=== PATIENT | female | born 1945 | race Caucasian/White ===

== ENCOUNTER 2018-07-26 19:22 | Emergency (ER) | payer MEDICARE ==
--- NOTE | 2018-07-26 20:15 | ED Physician Documentation ---
History of Present Illness - Stated complaint Stated Complaint: LT LEG PAIN - Chief complaint Chief Complaint: Trauma Ext - History obtained from History obtained from: Patient - History of Present Illness Timing: How many days ago (4) Pain level now: 5 Improved by: rest Worsened by: movement - Additonal information Additional information: c/o atraumatic LLE pain, mild swelling x 4 days, predominantly in ankle, calf, and hip. She is concerned because she has h/o DVT in LLE approximately 3 years ago. Review of Systems Constitutional: denies: Fever Musculoskeletal: reports: Extremity pain, Extremity swelling Neurologic: denies: Focal weakness, Numbness PD PAST MEDICAL HISTORY - Past Medical History Past Medical History: Yes Cardiovascular: Hypertension, High cholesterol - Past Surgical History Past Surgical History: Yes Ortho: Hip replacement - Present Medications Home Medications: Ambulatory Orders Medication Instructions Recorded Confirmed Oxycodone HCl/Acetaminophen 1 - 2 each PO Q6H PRN #20 tablet 07/26/18 [Percocet 5-325 mg Tablet] Rivaroxaban [Xarelto] 15 mg PO BID #41 tablet 07/26/18 Rivaroxaban [Xarelto] 20 mg PO DAILY #14 tablet 07/26/18 - Allergies Allergies/Adverse Reactions: Allergies Allergy/AdvReac Type Severity Reaction Status Date / Time No Known Drug Allergies Allergy Verified 07/26/18 19:29 - Social History Does the pt smoke?: No Smoking Status: Former smoker Does the pt drink ETOH?: No Does the pt have substance abuse?: No - Immunizations Immunizations are current?: Yes PD ED PE NORMAL - Vitals Vital signs reviewed: Yes - General General: Alert and oriented X 3, No acute distress, Well developed/nourished - Derm Derm: Normal color, Warm and dry, No rash - Extremities Extremities: No tenderness to palpate, Normal ROM s pain, No edema Results - Vitals Vitals: Vital Signs - 24 hr 07/26/18 07/26/18 07/26/18 19:27 19:28 21:58 Temperature 37.0 C 37.0 C 36.8 C Heart Rate 92 92 71 Respiratory 17 17 14 Rate Blood Pressure 154/86 H 154/86 H 148/80 H O2 Saturation 96 96 96 07/26/18 23:31 Temperature 36.7 C Heart Rate 85 Respiratory 14 Rate Blood Pressure 147/98 H O2 Saturation 94 Oxygen O2 Source Room air - Rads (name of study) LLE US Radiology: Prelim report reviewed, See rad report PD MEDICAL DECISION MAKING - ED course Complexity details: reviewed results, re-evaluated patient, considered differential, d/w patient ED course: Discussed results of US and treatment options with patient. US reveals small calf DVT; reviewing the literature, there is higher risk of proximal extension because of both h/o DVT as well as this clot being "unprovoked" (no inciting/precipitating event). I recommended initiating anticoagulation and patient agrees with this plan. Risks and benefits discussed as well as alternatives (risks including bleeding, cost, side effects; benefits including reduction and/or elimination of clot, reduced risk that clot will spread proximal and/or embolize; alternatives included milder anticoagulation such as aspirin and/or monitoring of worsening of signs/symptoms and repeat (outpatient) US). Departure - Departure Disposition: 01 Home, Self Care Clinical Impression: DVT, lower extremity, distal Condition: Good Instructions: ED DVT Follow-Up: Gaudencio Lyn MD [Primary Care Provider] - Within 1 week Prescriptions: Oxycodone HCl/Acetaminophen [Percocet 5-325 mg Tablet] 1 - 2 each PO Q6H PRN #20 tablet PRN Reason: pain Rivaroxaban [Xarelto] 15 mg PO BID #41 tablet Rivaroxaban [Xarelto] 20 mg PO DAILY #14 tablet Comments: Take the 15mg Xarelto twice per day for 21 days, then take the 20mg Xarelto once per day. You will likely need more of this medication, so be sure to follow up with your primary care provider to discuss further dosing. Discharge Date/Time: 07/26/18 23:52
[2018-07-26] MEDS ORDERED: oxyCODONE 5 MG TABLET PO STA ×2 (21:00→22:45)
--- NOTE | 2018-07-26 22:21 | Ultrasound Report ---
Reason: swelling, pain Procedure Date: 07/26/2018 Accession Number: [id number] / [id number] Procedure: US - Duplex Ext Veins Left CPT Code: FULL RESULT: EXAM: LEFT LOWER EXTREMITY VENOUS ULTRASOUND EXAM DATE: 07/26/2018 10:00 PM. CLINICAL HISTORY: Swelling, pain. COMPARISON: None. TECHNIQUE: Real-time sonographic vascular imaging was performed by the mold sander through the lower extremity utilizing both color-flow and Doppler spectral analysis. Multiple compliance representative static images were saved for review. FINDINGS: Common Femoral Vein (CFV): Normal. CFV-GSV Junction: Normal. Profunda Femoral Vein (PFV): Normal. Femoral Vein (FV) Prox: Normal. Femoral Vein (FV) Mid: Normal. Femoral Vein (FV) Dist: Normal. Popliteal Vein: Normal. Posterior Tibial Veins: An echogenic short segment intraluminal thrombus seen in one of the paired posterior tibial veins. Peroneal Veins: Normal. Contralateral Side CFV: Normal. Other: None. IMPRESSION: A short segment DVT in the calf vein/posterior tibial vein. RADIA
[2018-07-26] MEDS ORDERED: RIVAROXABAN 15 MG TABLET PO STA (23:16)
[2018-07-26 23:32] VITALS: BP 147/98
== END 2018-07-26 23:52 | disposition home or self-care (01) ==
LOC: ED 19:22
DX: I82.4Z2 Acute embolism and thrombosis of unspecified deep veins of left distal lower extremity (principal); I10 Essential (primary) hypertension; E78.00 Pure hypercholesterolemia, unspecified; Z96.649 Presence of unspecified artificial hip joint; Z87.891 Personal history of nicotine dependence
CPT/HCPCS: 93971; 99283; A9270

== ENCOUNTER 2022-04-07 13:36 | Emergency (ER) | payer MEDICARE ==
[2022-04-07 14:11] LABS: BASOPHILS # (AUTO) 0.1 10^3/uL (0.0-0.1); BASOPHILS % (AUTO) 0.4 %; EOSINOPHILS # (AUTO) 0.1 10^3/uL (0.0-0.7); EOSINOPHILS % (AUTO) 0.5 %; HCT - HEMATOCRIT 41.8 % (37.0-47.0); HGB - HEMOGLOBIN 13.5 g/dL (12.0-16.0); LYMPHOCYTES # (AUTO) 1.9 10^3/uL (1.5-3.5); LYMPHOCYTES % (AUTO) 13.2 %; MEAN CORPUSCULAR HEMOGLOBIN 29.5 pg (27.0-31.0); MEAN CORPUSCULAR HGB CONC 32.3 g/dL (32.0-36.0); MEAN CORPUSCULAR VOLUME 91.3 fL (81.0-99.0); MEAN PLATELET VOLUME 8.4 fL (7.9-10.8); MONOCYTES % (AUTO) 6.9 %; NEUTROPHILS # (AUTO) 11.4 10^3/uL (1.5-6.6); NEUTROPHILS % (AUTO) 78.6 %; PLT - PLATELET COUNT 499 10^3/uL (130-450); RED BLOOD COUNT 4.58 10^6/uL (4.20-5.40); RED CELL DISTRIBUTION WIDTH 13.2 % (12.0-15.0); WHITE BLOOD COUNT 14.5 x10^3/uL (4.8-10.8)
[2022-04-07 14:24] LABS: ALBUMIN 3.9 g/dL (3.2-5.5); ALBUMIN/GLOBULIN RATIO 1.1 (1.0-2.2); BILIRUBIN,TOTAL 0.8 mg/dL (0.2-1.0); CALCIUM 9.8 mg/dL (8.5-10.3); CREATININE 0.8 mg/dL (0.4-1.0); POTASSIUM 3.7 mmol/L (3.5-5.0); TOTAL PROTEIN 7.6 g/dL (6.7-8.2)
[2022-04-07 16:00] LABS: BILIRUBIN,URINE NEGATIVE (NEGATIVE); GLUCOSE, URINE (UA) NEGATIVE (NEGATIVE); KETONES,URINE (UA) NEGATIVE (NEGATIVE); LEUKOCYTE ESTERASE, URINE MODERATE (NEGATIVE); NITRITE,URINE NEGATIVE (NEGATIVE); OCCULT BLOOD,URINE TRACE-INTA (NEGATIVE); PROTEIN,URINE NEGATIVE (NEGATIVE); UROBILINOGEN,URINE 1 (NORMAL) E.U./dL (NORMAL)
[2022-04-07 16:04] LABS: CLARITY,URINE HAZY (CLEAR)
[2022-04-07] MEDS ORDERED: HYDROmorphone 1 MG/ML CARPUJECT IVP STA (16:06)
--- NOTE | 2022-04-07 16:10 | ED Physician Documentation ---
PD HPI ABD PAIN - Stated complaint Stated Complaint: ABD/BACK PX - Chief complaint Chief Complaint: Abd Pain - History obtained from History obtained from: Patient - History of Present Illness Timing - onset: Today Timing - details: Abrupt onset Pain level max: 9 Pain level now: 9 Quality: Aching, Pain Location: RUQ, RLQ Radiation: Right flank Improved by: Laying still Worsened by: Moving, Palpation Associated symptoms: No: Fever, Nausea, Vomiting, Hematemesis, Diarrhea, Constipation, Melena, Hematochezia, Dysuria, Hematuria, Chest pain Similar symptoms before: Has not had sx before - Additional information Additional information: 76-year-old female presents to the emergency department with right-sided a bdominal pain that started today after coughing. Since that time it has spread up her right flank into her right back. Worse with movement, better with rest. Did not take anything for pain. No nausea or vomiting. No diarrhea. No constipation. No urinary symptoms. No fevers. No chills. Patient states that she has not had any intra-abdominal surgeries. Review of Systems Ten Systems: 10 systems reviewed and negative Constitutional: denies: Fever, Chills Ears: denies: Ear pain Nose: denies: Rhinorrhea / runny nose, Congestion Throat: denies: Sore throat Cardiac: denies: Chest pain / pressure, Palpitations Respiratory: reports: Cough (Occasional, dry). denies: Dyspnea, Wheezing GI: denies: Vomiting, Diarrhea, Hematemesis, Bloody / black stool : denies: Dysuria, Frequency, Hesitancy, Hematuria Skin: denies: Rash Musculoskeletal: denies: Neck pain, Back pain Neurologic: denies: Headache PD PAST MEDICAL HISTORY - Past Medical History Past Medical History: Yes Cardiovascular: Hypertension, High cholesterol, Deep vein thrombosis Respiratory: None Neuro: None Endocrine/Autoimmune: None GI: GERD COMPUTER SCIENCE PROFESSOR: Breast cancer : None HEENT: None Psych: None Musculoskeletal: None Derm: None - Past Surgical History Past Surgical History: Yes Ortho: Hip replacement /COMPUTER SCIENCE PROFESSOR: Other - Present Medications Home Medications: Ambulatory Orders Medication Instructions Recorded Confirmed Rivaroxaban [Xarelto] 20 mg PO DAILY #14 tablet 07/26/18 04/07/22 Amlodipine Besylate [Norvasc] 10 mg PO DAILY 04/07/22 04/07/22 Atorvastatin [Lipitor] 40 mg PO QPM 04/07/22 04/07/22 Losartan [Cozaar] 50 mg ORAL DAILY 04/07/22 04/07/22 Oxycodone HCl/Acetaminophen 1 - 2 each PO Q6H PRN #14 tablet 04/07/22 [Percocet 5-325 mg Tablet] MDD 6 tabs hydroCHLOROthiazide [Hydrodiuril] 12.5 mg PO DAILY 04/07/22 04/07/22 - Allergies Allergies/Adverse Reactions: Allergies Allergy/AdvReac Type Severity Reaction Status Date / Time No Known Drug Allergies Allergy Verified 04/07/22 13:49 - Social History Does the pt smoke?: No Smoking Status: Former smoker Does the pt drink ETOH?: Yes Does the pt have substance abuse?: No - Immunizations Immunizations are current?: Yes PD ED PE NORMAL - Vitals Vital signs reviewed: Yes - General General: Alert and oriented X 3, No acute distress - HEENT HEENT: PERRL, Moist mucous membranes - Neck Neck: Supple, no meningeal sign - Cardiac Cardiac: RRR, Strong equal pulses - Respiratory Respiratory: No respiratory distress, Clear bilaterally - Abdomen Abdomen: Soft, Other (Tender to palpation right lower quadrant/right upper quadrant. Positive rebound and guarding.) - Back Back: No spinal TTP, Other (Right CVA tenderness) - Derm Derm: Warm and dry - Extremities Extremities: No calf tenderness / cord - Neuro Neuro: Alert and oriented X 3 - Psych Psych: Normal mood, Normal affect Results - Vitals Vitals: Vital Signs - 24 hr 04/07/22 04/07/22 04/07/22 13:49 16:06 18:00 Temperature 36.4 C L Heart Rate 80 81 71 Respiratory 16 18 18 Rate Blood Pressure 149/74 H 161/96 H 135/74 H O2 Saturation 94 96 93 04/07/22 20:00 Temperature 36.6 C Heart Rate 75 Respiratory 18 Rate Blood Pressure 116/71 O2 Saturation 100 Oxygen O2 Source Room air - Labs Labs: Laboratory Tests 04/07/22 04/07/22 04/07/22 14:00 14:04 14:04 WBC 14.5 H RBC 4.58 Hgb 13.5 Hct 41.8 MCV 91.3 MCH 29.5 MCHC 32.3 RDW 13.2 Plt Count 499 H MPV 8.4 Neut # (Auto) 11.4 H Lymph # (Auto) 1.9 [place] # (Auto) 1.0 Eos # (Auto) 0.1 Baso # (Auto) 0.1 Absolute Nucleated RBC 0.00 Nucleated RBC % 0.0 Sodium 136 Potassium 3.7 Chloride 99 L Carbon Dioxide 26 Anion Gap 11.0 BUN 16 Creatinine 0.8 Estimated GFR (MDRD) 69 L Glucose 128 H Calcium 9.8 Total Bilirubin 0.8 AST 20 ALT 16 Alkaline Phosphatase 89 Total Protein 7.6 Albumin 3.9 Globulin 3.7 Albumin/Globulin Ratio 1.1 Lipase 26 Urine Color YELLOW Urine Clarity HAZY Urine pH 6.0 Ur Specific [place] 1.025 Urine Protein NEGATIVE Urine Glucose (UA) NEGATIVE Urine Ketones NEGATIVE Urine Occult Blood TRACE-INTA Urine Nitrite NEGATIVE Urine Bilirubin NEGATIVE Urine Urobilinogen 1 (NORMAL) Ur Leukocyte Esterase MODERATE H Urine RBC 0-5 Urine WBC >25 H Ur Squamous Epith Cells FEW Squamous Urine Bacteria Moderate H Ur Microscopic Review INDICATED Urine Culture Comments INDICATED 04/07/22 18:40 WBC 13.2 H RBC 4.35 Hgb 12.8 Hct 39.7 MCV 91.3 MCH 29.4 MCHC 32.2 RDW 13.2 Plt Count 432 MPV 8.4 Neut # (Auto) 10.7 H Lymph # (Auto) 1.5 [place] # (Auto) 0.8 Eos # (Auto) 0.1 Baso # (Auto) 0.1 Absolute Nucleated RBC 0.00 Nucleated RBC % 0.0 Sodium Potassium Chloride Carbon Dioxide Anion Gap BUN Creatinine Estimated GFR (MDRD) Glucose Calcium Total Bilirubin AST ALT Alkaline Phosphatase Total Protein Albumin Globulin Albumin/Globulin Ratio Lipase Urine Color Urine Clarity Urine pH Ur Specific [place] Urine Protein Urine Glucose (UA) Urine Ketones Urine Occult Blood Urine Nitrite Urine Bilirubin Urine Urobilinogen Ur Leukocyte Esterase Urine RBC Urine WBC Ur Squamous Epith Cells Urine Bacteria Ur Microscopic Review Urine Culture Comments - Rads (name of study) CT abdomen pelvis Radiology: Final report received, See rad report PD Medical Decision Making - ED course Complexity details: reviewed results, re-evaluated patient, considered differential, d/w patient, d/w family ED course: 76-year-old female has a hematoma in the right rectus abdominis muscle. She is anticoagulated. She states that she is anticoagulated for a remote history of blood clots. She states the blood clots were in her leg. Her pain is well controlled here. Discussed the case with general surgery, Dr. Lucas. He recommends follow-up as an outpatient. No significant drop in her hemoglobin on repeat CBC. The initial injury was approximately 10 hours ago. No hemodynamic instability. No lightheadedness, dizziness, shortness of breath. Patient will hold her anticoagulant medication. Patient will follow up with her doctor for the exophytic lesion at the superior pole of the right kidney. Patient counseled regarding signs and symptoms for which I believe and urgent re- evaluation would be necessary. Patient with good understanding of and agreement to plan and is comfortable going home at this time This document was made in part using voice recognition software. While efforts are made to proofread this document, sound alike and grammatical errors may occur. ABDOMEN: Lung bases: Lung bases are clear. Heart size is normal. Solid organs: A 1.5 x 0.8 cm hypoattenuating lesion is seen in the left hepatic lobe. Additional subcentimeter lesions are seen in both of the liver that are too small characterize. Tiny calcified gallstones or dependent sludge is seen in the gallbladder. No pericholecystic inflammatory changes. Biliary system is non dilated. Pancreas enhances normally. Spleen is normal in size. A 1.7 x 0.8 cm right adrenal nodule is indeterminate. Mild nodular thickening of the left adrenal gland. A 2.5 cm exophytic lesion of the superior pole of the right kidney is indeterminate. Kidneys demonstrate normal size and enhancement, without hydronephrosis. Peritoneum and bowel: Small hiatal hernia. Mildly redundant colon with numerous diverticula. No signs of acute diverticulitis. Normal appendix. Small bowel loops are unremarkable. No free fluid or air. Nodes and vessels: No retroperitoneal or mesenteric adenopathy by size criteria. Aorta and inferior vena cava are normal in size. Miscellaneous: Intramuscular hematoma is seen within the right rectus abdominis muscle. Hyperdense material is seen within the collection that may represent active contrast extravasation. Overall, the hematoma measures approximately 17 x 12 x 3.6 cm. PELVIS: Genitourinary: Bladder wall thickness is normal. Miscellaneous: No inguinal hernias or adenopathy. Bones: No suspicious bony lesions. No vertebral body compression fractures. Postsurgical changes from left hip arthroplasty with extensive metal streak artifact. Multilevel degenerative changes are seen in the spine. Severe right hip osteoarthrosis. IMPRESSION: 1.Intramuscular hematoma within the right rectus abdominis muscle. A small amount of hyperdense material is suspicious for active contrast extravasation and ongoing hemorrhage. 2.Indeterminate 2.5 cm exophytic lesion at the superior pole the right kidney. Recommend renal ultrasound versus follow-up multiphase renal MRI or CT to exclude a solid mass. 3.Right adrenal 1.7 cm nodule. Consider 12 month follow-up adrenal protocol MRI or CT if not characterized on a follow-up renal exam. Departure - Departure Disposition: 01 Home, Self Care Clinical Impression: Nontraumatic rectus hematoma, Kidney mass Condition: Good Instructions: ED Hematoma Follow-Up: Cleveland Lucas MD [Provider Admit Priv/Credential] - Within 3 Days RAMIRO BURRELL MD [Primary Care Provider] - Within 1 week Prescriptions: Oxycodone HCl/Acetaminophen [Percocet 5-325 mg Tablet] 1 - 2 each PO Q6H PRN #14 tablet MDD 6 tabs PRN Reason: pain Comments: Please stop your blood thinner for the next 5 days. Please follow-up with general surgery, Dr. Lucas within 2 to 3 days for a recheck. Please return for uncontrolled pain, changes to your skin including bluish or blackish discoloration, chest pain, shortness of breath, dizziness or passing out. Please return if you worsen. Your prescriptions were sent to [facility] in [place]. I am prescribing a short course of narcotic pain medication for you. These are potentially dangerous and addictive medications that should be used carefully. These medications may constipate you. Take an [id number] stool softener (docusate) twice daily with plenty of water while taking these medications. If you go 24 hours without a bowel movement, take [id number] miralax, per package instructions. Do not drink or drive while taking these medications. If you received narcotic or sedating medications while in the emergency department, do not drive for 24 hours. Store this medication in a safe, secure place and out of reach of children. It is a violation of federal law to give or sell this medication to another person or to use in a manner other than prescribed. The ED will not refill narcotic prescriptions, including prescriptions lost or stolen. To dispose of unwanted medications: 1. [facility] at [address] in [place] has a medication drop box. They accept prescription medications (in pill form) Wednesday through Wednesday 9:00 a.m. to 5:00 p.m. 2. The [facility] [employer] accepts prescription medications (in pill form only) for disposal year round. Call for more inform ation. 3. Contact the [facility] for the next [facility] sponsored prescription drug collection event. , [phone], or [phone]; IMPRESSION: 1.Intramuscular hematoma within the right rectus abdominis muscle. A small amount of hyperdense material is suspicious for active contrast extravasation and ongoing hemorrhage. 2.Indeterminate 2.5 cm exophytic lesion at the superior pole the right kidney. Recommend renal ultrasound versus follow-up multiphase renal MRI or CT to exclude a solid mass. 3.Right adrenal 1.7 cm nodule. Consider 12 month follow-up adrenal protocol MRI or CT if not characterized on a follow-up renal exam. Discharge Date/Time: 04/07/22 20:25
[2022-04-07 16:17] LABS: BACTERIA,URINE Moderate /HPF (None Seen); RBC,URINE 0-5 /HPF (0-5); SQUAMOUS EPITHELIAL CELL,UR FEW Squamous (<= Few); WBC,URINE >25 /HPF (0-5)
[2022-04-07] MEDS ORDERED: iohexoL-300 100 ML VIAL ONE (16:53)
[2022-04-07] MEDS ORDERED: iohexoL-300 100 ML VIAL IVP ONE (17:13)
--- NOTE | 2022-04-07 18:14 | CT Report ---
PROCEDURE: ABDOMEN/PELVIS W INDICATIONS: R sided abd pain started today CONTRAST: 100mL Omni 300 TECHNIQUE: After the administration of No acute cardiopulmonary abnormality. contrast, 5 mm thick sections acqui red from the diaphragms to the symphysis. 5 mm thick coronal and sagittal reformats were acquired. For radiation dose reduction, the following was used: automated exposure control, adjustment of mA a nd/or kV according to patient size. COMPARISON: None. FINDINGS: Image quality: Excellent. ABDOMEN: Lung bases: Lung bases are clear. Heart size is normal. Solid organs: A 1.5 x 0.8 cm hypoattenuating lesion is seen in the left hepatic lobe. Additional sub centimeter lesions are seen in both of the liver that are too small characterize. Tiny calcified gall stones or dependent sludge is seen in the gallbladder. No pericholecystic inflammatory changes. Bilia ry system is non dilated. Pancreas enhances normally. Spleen is normal in size. A 1.7 x 0.8 cm right adrenal nodule is indeterminate. Mild nodular thickening of the left adrenal gland. A 2.5 cm exophyt ic lesion of the superior pole of the right kidney is indeterminate. Kidneys demonstrate normal size and enhancement, without hydronephrosis. Peritoneum and bowel: Small hiatal hernia. Mildly redundant colon with numerous diverticula. No sign s of acute diverticulitis. Normal appendix. Small bowel loops are unremarkable. No free fluid or air. Nodes and vessels: No retroperitoneal or mesenteric adenopathy by size criteria. Aorta and inferior vena cava are normal in size. Miscellaneous: Intramuscular hematoma is seen within the right rectus abdominis muscle. Hyperdense ma terial is seen within the collection that may represent active contrast extravasation. Overall, the h ematoma measures approximately 17 x 12 x 3.6 cm. PELVIS: Genitourinary: Bladder wall thickness is normal. Miscellaneous: No inguinal hernias or adenopathy. Bones: No suspicious bony lesions. No vertebral body compression fractures. Postsurgical changes f rom left hip arthroplasty with extensive metal streak artifact. Multilevel degenerative changes are s een in the spine. Severe right hip osteoarthrosis. IMPRESSION: 1.Intramuscular hematoma within the right rectus abdominis muscle. A small amount of hyperdense mater ial is suspicious for active contrast extravasation and ongoing hemorrhage. 2.Indeterminate 2.5 cm exophytic lesion at the superior pole the right kidney. Recommend renal ultras ound versus follow-up multiphase renal MRI or CT to exclude a solid mass. 3.Right adrenal 1.7 cm nodule. Consider 12 month follow-up adrenal protocol MRI or CT if not characte rized on a follow-up renal exam. Findings were discussed with Dr. Garcia of the Emergency Department by telephone on 04/07/2022 at 6:0 7 PM. Reviewed by: Rigo Castillo MD on 04/07/2022 6:12 PM PST Approved by: Rigo Castillo MD on 04/07/2022 6:12 PM PST Station ID: [id number]
[2022-04-07] MEDS ORDERED: oxyCODONE 5 MG TABLET PO STA (18:25)
[2022-04-07 18:45] LABS: BASOPHILS # (AUTO) 0.1 10^3/uL (0.0-0.1); BASOPHILS % (AUTO) 0.4 %; EOSINOPHILS # (AUTO) 0.1 10^3/uL (0.0-0.7); EOSINOPHILS % (AUTO) 0.5 %; HCT - HEMATOCRIT 39.7 % (37.0-47.0); HGB - HEMOGLOBIN 12.8 g/dL (12.0-16.0); LYMPHOCYTES # (AUTO) 1.5 10^3/uL (1.5-3.5); LYMPHOCYTES % (AUTO) 11.2 %; MEAN CORPUSCULAR HEMOGLOBIN 29.4 pg (27.0-31.0); MEAN CORPUSCULAR HGB CONC 32.2 g/dL (32.0-36.0); MEAN CORPUSCULAR VOLUME 91.3 fL (81.0-99.0); MEAN PLATELET VOLUME 8.4 fL (7.9-10.8); MONOCYTES # (AUTO) 0.8 10^3/uL (0.0-1.0); MONOCYTES % (AUTO) 6.1 %; NEUTROPHILS # (AUTO) 10.7 10^3/uL (1.5-6.6); NEUTROPHILS % (AUTO) 81.4 %; PLT - PLATELET COUNT 432 10^3/uL (130-450); RED BLOOD COUNT 4.35 10^6/uL (4.20-5.40); RED CELL DISTRIBUTION WIDTH 13.2 % (12.0-15.0); WHITE BLOOD COUNT 13.2 x10^3/uL (4.8-10.8)
[2022-04-07] MEDS ORDERED: oxyCODONE/ACET 5/325 Prepack 4 PO STA (20:07)
[2022-04-07 20:28] VITALS: BP 116/71
== END 2022-04-07 20:25 | disposition home or self-care (01) ==
LOC: ED 13:36
DX: S30.1XXA Contusion of abdominal wall, initial encounter (principal); X58.XXXA Exposure to other specified factors, initial encounter; N28.89 Other specified disorders of kidney and ureter; R05.9 Cough, unspecified; I10 Essential (primary) hypertension; Z86.718 Personal history of other venous thrombosis and embolism; Z79.01 Long term (current) use of anticoagulants
CPT/HCPCS: 36415; 74177; 80053; 81001; 83690; 85025; 87086; 96374; 99284; A9270; J1170; Q9967; 81003

== ENCOUNTER 2023-05-04 05:23 | Outpatient (CLI) | payer MEDICARE | END 2023-05-04 23:59 | disposition critical access hospital (66) | LOC: EMS 05:23 | DX: R68.84 Jaw pain (principal); R22.1 Localized swelling, mass and lump, neck; K11.8 Other diseases of salivary glands | CPT/HCPCS: A0425; A0427 ==

== ENCOUNTER 2023-05-04 06:05 | Inpatient (IN) | payer MEDICARE ==
[2023-05-04] MEDS ORDERED: CHERRY SYRUP 10 ML UDC PO ONE (06:16)
[2023-05-04] MEDS ORDERED: DEXAMETHASONE 10 MG/ML VIAL PO STA (06:16)
--- NOTE | 2023-05-04 06:18 | ED Physician Documentation ---
PD HPI NECK PAIN - Stated complaint Stated Complaint: MOUTH PX - History obtained from History obtained from: Patient - History of Present Illness Timing - onset: How many days ago (4) Timing - duration: Days Timing - details: Gradual onset, Still present Location: Upper, Right, Other (submandibular) Quality: Pain, Sharp Associated symptoms: No: Fever, Weakness, Numbness, Incontinent of urine, Unable to urinate, Hematuria, Incontinent of stool Improves with: Meds Similar symptoms before: Has not had sx before Recently seen: Clinic - Additional information Additional information: Jessica Allison is a 77-year-old female was recently been seen in the clinic and diagnosed with a salivary gland obstruction. She has not had luck with maneuvers to get the gland to empty and she has had some tramadol which helped with the pain. In route to the hospital she received some fentanyl. She has had some relief of her pain associated with that. Review of Systems Constitutional: denies: Fever Ears: denies: Ear pain Nose: denies: Congestion Throat: reports: Other (pain to the right submandibular area). denies: Sore throat Respiratory: denies: Cough GI: denies: Vomiting PD PAST MEDICAL HISTORY - Past Medical History Cardiovascular: Hypertension, High cholesterol, Deep vein thrombosis Respiratory: None Neuro: None Endocrine/Autoimmune: None GI: GERD ZIGZAG STITCHER: Breast cancer : None HEENT: None Psych: None Musculoskeletal: None Derm: None - Past Surgical History Past Surgical History: Yes Ortho: Hip replacement /ZIGZAG STITCHER: Other - Present Medications Home Medications: Ambulatory Orders Medication Instructions Recorded Confirmed Rivaroxaban [Xarelto] 20 mg PO DAILY #14 tablet 07/26/18 05/04/23 Amlodipine Besylate [Norvasc] 10 mg PO DAILY 04/07/22 05/04/23 Atorvastatin [Lipitor] 40 mg PO QPM 04/07/22 05/04/23 Losartan [Cozaar] 50 mg ORAL DAILY 04/07/22 05/04/23 hydroCHLOROthiazide [Hydrodiuril] 12.5 mg PO DAILY 04/07/22 05/04/23 traMADol [Ultram] 50 mg PO Q6H PRN 05/04/23 05/04/23 - Allergies Allergies/Adverse Reactions: Allergies Allergy/AdvReac Type Severity Reaction Status Date / Time No Known Drug Allergies Allergy Verified 04/07/22 13:49 - Social History Does the pt smoke?: No Smoking Status: Former smoker Does the pt drink ETOH?: Yes Does the pt have substance abuse?: No - Immunizations Immunizations are current?: Yes PD ED PE NORMAL - Vitals Vital signs reviewed: Yes (hypertensive mild) - General General: Alert and oriented X 3, No acute distress, Well developed/nourished - HEENT HEENT: Atraumatic, PERRL, EOMI, Other (There is swelling and tenderness to the right submandibular area. I am not able to palpate a specific mass in the subligual area but I am able to locate tenderness and a tiny mass between two fingers inside and outside of the mouth over the submandibular area. ) - Neck Neck: Supple, no meningeal sign, No bony TTP, Other (mass is tender submandibular and swollen and on the right. ) - Respiratory Respiratory: No respiratory distress - Derm Derm: Normal color, Warm and dry, No rash - Extremities Extremities: No deformity, No edema - Neuro Neuro: Alert and oriented X 3, process assistant 2-12 intact, No motor deficit, No sensory deficit, Normal speech Eye Opening: Spontaneous Motor: Obeys Commands Verbal: Oriented GCS Score: 15 - Psych Psych: Normal mood, Normal affect Results - Vitals Vitals: Vital Signs - 24 hr 05/04/23 05/04/23 06:18 06:30 Temperature 35.9 C L 35.9 C L Heart Rate 71 71 Respiratory 17 17 Rate Blood Pressure 127/50 L 127/50 L O2 Saturation 97 97 Oxygen O2 Source Room air - Labs Labs: Laboratory Tests 05/04/23 05/04/23 07:53 07:53 WBC 20.3 H RBC 4.29 Hgb 12.6 Hct 39.0 MCV 90.9 MCH 29.4 MCHC 32.3 RDW 13.2 Plt Count 392 MPV 8.6 Neut # (Auto) 17.6 H Lymph # (Auto) 0.9 L [place] # (Auto) 1.7 H Eos # (Auto) 0.0 Baso # (Auto) 0.1 Absolute Nucleated RBC 0.00 Nucleated RBC % 0.0 Manual Slide Review Indicated RBC Morph Micro Appear 1+ ANISOCYTOSIS Sodium 136 Potassium 3.4 L Chloride 105 Carbon Dioxide 24 Anion Gap 7.0 BUN 11 Creatinine 0.6 Estimated GFR (MDRD) 96 Glucose 130 H Calcium 9.3 PD Medical Decision Making - ED course Complexity details: reviewed old records, reviewed results, re-evaluated patient, considered differential, d/w patient ED course: 77-year-old female with a tender mass in the submandibular area of the right side of her neck is presumed to have an obstructed salivary gland. On initial evaluation I pushed hard on this tiny mass and this seemed to make the patient's pain worse. She was administered intravenous Dilaudid and had improvement in her pain. At this point I ordered soft tissue of the neck for evaluation of the potential mass as there is significant elevation of the white blood cell count. At shift change results of the scan are pending and care of the patient is turned over to Dr. Powell.
[2023-05-04] MEDS ORDERED: ONDANSETRON 4 MG/2 ML VIAL IVP STA (06:41)
[2023-05-04] MEDS ORDERED: HYDROmorphone 1 MG/ML CARPUJECT IVP STA (06:41)
[2023-05-04] MEDS ORDERED: iohexoL-300 100 ML VIAL ONE (07:30)
[2023-05-04 07:58] LABS: BASOPHILS # (AUTO) 0.1 10^3/uL (0.0-0.1); BASOPHILS % (AUTO) 0.2 %; HGB - HEMOGLOBIN 12.6 g/dL (12.0-16.0); LYMPHOCYTES # (AUTO) 0.9 10^3/uL (1.5-3.5); LYMPHOCYTES % (AUTO) 4.3 %; MEAN CORPUSCULAR HEMOGLOBIN 29.4 pg (27.0-31.0); MEAN CORPUSCULAR HGB CONC 32.3 g/dL (32.0-36.0); MEAN CORPUSCULAR VOLUME 90.9 fL (81.0-99.0); MEAN PLATELET VOLUME 8.6 fL (7.9-10.8); MONOCYTES # (AUTO) 1.7 10^3/uL (0.0-1.0); MONOCYTES % (AUTO) 8.2 %; NEUTROPHILS # (AUTO) 17.6 10^3/uL (1.5-6.6); NEUTROPHILS % (AUTO) 86.9 %; PLT - PLATELET COUNT 392 10^3/uL (130-450); RED BLOOD COUNT 4.29 10^6/uL (4.20-5.40); RED CELL DISTRIBUTION WIDTH 13.2 % (12.0-15.0); WHITE BLOOD COUNT 20.3 x10^3/uL (4.8-10.8)
[2023-05-04 08:13] LABS: CALCIUM 9.3 mg/dL (8.5-10.3); CREATININE 0.6 mg/dL (0.6-1.3); POTASSIUM 3.4 mmol/L (3.5-4.5)
[2023-05-04 08:23] LABS: RBC MORPHOLOGY (MULTIPLE) 1+ ANISOCYTOSIS (NORMAL); SLIDE REVIEW? Indicated
[2023-05-04] MEDS ORDERED: CLINDAMYCIN 600 MG/50 ML 50 ML IV ONE (09:09)
[2023-05-04] MEDS ORDERED: iohexoL-300 100 ML VIAL IVP ONE (09:19)
--- NOTE | 2023-05-04 09:51 | CT Report ---
PROCEDURE: Soft Tissue Neck W/WO INDICATIONS: right submandibular mass painful not resolving CONTRAST: mni 300 100ml TECHNIQUE: Before and after the administration of intravenous contrast, 2.0 mm axial sections acquired through t he neck and down to the kate. Additional 2.0 mm coronal and sagittal reformats were generated of t he contrast enhanced images. For radiation dose reduction, the following was used: automated exposu re control, adjustment of mA and/or kV according to patient size. COMPARISON: FINDINGS: Image quality: Degraded by metallic artifact.. Lymph nodes: No enlarged lymph nodes seen throughout the neck. Vessels: Visualized vasculature appears patent. Neck spaces: The nasopharynx is within normal limits. There is severe cervical edema diffusely throu ghout the oropharynx, extending into the right aspect of the hypopharynx with effacement of the right hypopharynx and piriform sinus. There is severe submucosal edema and narrowing involving the supragl ottic airway, and glottis, with severe associated airway narrowing. There is an ill-defined low-densi ty focus within the right aspect of the hypopharynx, spanning roughly 25 mm. Multiple calcifications within the tonsillar pillars bilaterally, as well as the hypopharynx, right greater than left. Glands: The parotid glands are within normal limits. There is moderate enlargement of the right suba rticular gland which demonstrates internal and surrounding low density with surrounding fat stranding . Miscellaneous: Visualized lungs appear clear. Superficial soft tissues appear normal. Bones: No suspicious bony lesions. Visualized sinuses and mastoids appear unremarkable. IMPRESSION: 1. Sialoadenitis involving the right submandibular gland. 2. Ill-defined low-density focus within the right aspect of the hypopharynx, suggestive of abscess. E NT consultation is recommended to exclude underlying neoplasm. 3. Severe submucosal edema/cellulitis involving the hypopharynx and glottis with severe airway narrow ing. Reviewed by: Myra Mclaughlin MD on 05/04/2023 9:50 AM PST Approved by: Myra Mclaughlin MD on 05/04/2023 9:50 AM PST Station ID: [id number]
[2023-05-04] MEDS ORDERED: cefTRIAXone 1 GM VIAL IVP STA (10:17)
[2023-05-04] MEDS ORDERED: DEXAMETHASONE 10 MG/ML VIAL IVP STA (10:18)
[2023-05-04] MEDS ORDERED: KETOROLAC 15 MG/ML VIAL IVP STA (10:18)
[2023-05-04] MEDS ORDERED: SODIUM CHLORIDE 0.9% 1,000 ML IV STA (10:18)
[2023-05-04 10:46] LABS: INR 1.6 (0.8-1.2); PT - PROTHROMBIN TIME 17.4 secs (9.9-12.6)
[2023-05-04] MEDS ORDERED: HYDROmorphone 0.5 MG/0.5 ML SYRINGE IVP PRN (11:51)
[2023-05-04] MEDS ORDERED: SODIUM CHLORIDE FLUSH 0.9% 10 ML SYRINGE IVP PRN (11:51)
[2023-05-04] MEDS ORDERED: ACETAMINOPHEN 160 MG/5 ML SUSP UDC PO PRN (11:55)
[2023-05-04] MEDS ORDERED: traMADol 50 MG TABLET PO PRN (11:56)
--- NOTE | 2023-05-04 12:03 | HISTORY & PHYSICAL EXAMINATION ---
Chief Complaint - Chief Complaint Chief Complaint: R neck pain and swelling, trouble swalllowing History of Present Illness - Admitted From Admitted From:: ED - History Obtained From History obtained from: ED provider - History of Present Illness HPI Comment/Other: This is a 77-year-old female. She has a history of hypertension and DVT and takes Xarelto. She presents to the ER early this morning complaining of several days of swelling in the right submandibular region and then an area became exquisitely tender. A mass is palpable, as documented by the ER provider. She notices that her voice is slightly abnormal and hoarse but she denies shortness of breath. She does say that swallowing feels "funny" but no stridor was appreciated in the ER. There is no fever, cough, runny nose, dental pain or trauma. Her workup showed a white count of [address] imaging shows sialoadenitis and cellulitis of the neck and narrowing of the airway. The ER provider reached out to oral maxillofacial surgeon Dr. Hassan who advised admission and IV antibiotics and he will see her in consult. I discussed her CODE BLUE wishes and she wants to be a Full Code. History - Past Medical History Cardiovascular: reports: Hypertension, High cholesterol, Deep vein thrombosis Respiratory: reports: None Neuro: reports: None Endocrine/Autoimmune: reports: None GI: reports: GERD CAMERA PERSON: reports: Breast cancer : reports: None HEENT: reports: None Psych: reports: None Musculoskeletal: reports: None Derm: reports: None MRSA Hx?: No - Past Surgical History Ortho: reports: Hip replacement /CAMERA PERSON: reports: Other - Family & Social History Living arrangement: At home Living Situation: With spouse/s.o. Social History Notes: She is a non-smoker. She drinks no alcohol. She drives a car. She lives with her . - Substance History Use: Uses substance without health or social issues: NONE - POLST Patient has POLST: No POLST Status: Full Code Meds/Allgy - Home Medications Home Medications: Ambulatory Orders Medication Instructions Recorded Confirmed Rivaroxaban [Xarelto] 20 mg PO DAILY #14 tablet 07/26/18 05/04/23 Amlodipine Besylate [Norvasc] 10 mg PO DAILY 04/07/22 05/04/23 Atorvastatin [Lipitor] 40 mg PO QPM 04/07/22 05/04/23 Losartan [Cozaar] 50 mg ORAL DAILY 04/07/22 05/04/23 hydroCHLOROthiazide [Hydrodiuril] 12.5 mg PO DAILY 04/07/22 05/04/23 Potassium Chloride 20 meq PO DAILY 05/04/23 05/04/23 traMADol [Ultram] 50 mg PO Q6H PRN 05/04/23 05/04/23 - Allergies Allergies/Adverse Reactions: Allergies Allergy/AdvReac Type Severity Reaction Status Date / Time No Known Drug Allergies Allergy Verified 04/07/22 13:49 Review of Systems - Ears, Nose & Throat Ears, Nose & Throat: reports: Hoarseness, Other (R neck pain and swelling, hard to swallow) - All Other Systems All Other Systems: reports: Reviewed and negative Exam - Vital Signs Vital Signs: Vital Signs x48h Temp Pulse Resp BP Pulse Ox O2 Flow Rate 05/04/23 10:53 36.5 C 98 18 115/96 H 93 05/04/23 09:49 18 95 05/04/23 09:31 36.4 C L 76 18 111/59 L 96 2 05/04/23 06:30 35.9 C L 71 17 127/50 L 97 05/04/23 06:18 35.9 C L 71 17 127/50 L 97 - Physical Exam General Appearance: positive: No acute distress, Alert Eyes Bilateral: positive: Normal inspection, EOMI ENT: positive: No signs of dehydration, Other (R submandibular area has mild swelling and mild tenderness) Neck: positive: Nml inspection, Other (R submandibular area has mild swelling and a palpable tiny hard area, and has minimal tenderness) Respiratory: positive: No respiratory distress, Breath sounds nml Cardiovascular: positive: Regular rate & rhythm, No murmur Abdomen: positive: Non-tender, No distention Skin: positive: Warm, Dry Extremities: positive: Non-tender, No pedal edema Neurologic/Psychiatric: positive: Oriented x3, CN's nml (2-12), Motor nml Conclusion/Plan - Problem List (1) Acute sialoadenitis Conclusion/Plan: As per CT imaging and clinical presentation Plan: Will request consult from Dr Hassan, Oral-maxillofacial Surgeon Will cont empiric iv antibx using Clinda. She was not recently hospitalized or has immunocompromise, to consider MRSA and needing Vanco. At discharge, will transition to oral Augmentin. I discussed case with dR Hassan. Await cx resukts to taolor antibx Start a probiotic Cont iv pain meds (2) Narrow pharyngeal airway Conclusion/Plan: As per CT imaging. She received Decadron iv x2 in the ER Plan: Will order a full lquid diet, advance as tolerated We will continue with Decadron 6 mg IV daily and will transition to medrol dose ryan at [facility] Will request consult from Dr Hassan, oral-maxillofacial Surgeon Will order nursing to monitor her airway and call provider if there is any stridor or breathlessness. She may then need to have intubation (3) Cellulitis of neck Conclusion/Plan: As per imaging and clinical impression with elevated WBC and mass on neck Plan: Will continue with empiric IV antibiotics using clinda Other rec as per Dr Hassan (4) HTN (hypertension) Conclusion/Plan: Her reconciled med list states that she is on amlodipine 10 mg daily and HCTZ Plan: Her blood pressure is only running 115 systolic and I do not expect her to be taking any significant diet therefore amlodipine will will not be ordered and HCTZ is on hold while she needs IV fluids (5) Hx of deep venous thrombosis Conclusion/Plan: The patient takes Xarelto at home Plan: We will substitute with Eliquis 5 mg twice daily while here. If Eliquis tablets are too big to swallow then I will place her on therapeutic sq Lovenox twice daily. - Lab Results Fish Bones: 05/04/23 07:53 05/04/23 07:53 - Other Other Results/Comments: Attestation: The patient is expected to be hospitalized for greater than 2 midnights and is expected to be discharged or transferred to another facility within 96 hours: Yes.
[2023-05-04] MEDS: D5NS W/20 MEQ KCL 1,000 ML IV SCH (12:56)
--- NOTE | 2023-05-04 13:54 | CONSULTATION NOTE ---
Referring Provider Name of Referring Provider:: Crissy Barksdale Consult Date: 05/04/23 Chief Complaint - Chief Complaint Chief Complaint: Neck Swelling History of Present Illness - Admitted From Admitted From:: ER - History of Present Illness HPI Comment/Other: Jessica is a 77-year-old female accompanied by her to the emergency room today for neck swelling. She reports that she started having neck swelling on Wednesday. She has not had any tooth pain at all lately. She has no recent traumas. She has no history of mouth or neck cancer. She reports that when she first came in today her neck felt tight, and she had difficulty swallowing. She reported mild airway resistance when breathing. she denies any fever. She denies any foul tasting drainage in her mouth. History - Past Medical History Cardiovascular: reports: Hypertension, High cholesterol, Deep vein thrombosis Respiratory: reports: None Neuro: reports: None Endocrine/Autoimmune: reports: None GI: reports: None WHEEL FITTER: reports: Breast cancer : reports: None HEENT: reports: None Psych: reports: None Musculoskeletal: reports: None Derm: reports: None MRSA Hx?: No - Past Surgical History Ortho: reports: Hip replacement /WHEEL FITTER: reports: Other Meds/Allgy - Home Medications Home Medications: Ambulatory Orders Medication Instructions Recorded Confirmed Rivaroxaban [Xarelto] 20 mg PO DAILY #14 tablet 07/26/18 05/04/23 Amlodipine Besylate [Norvasc] 10 mg PO DAILY 04/07/22 05/04/23 Atorvastatin [Lipitor] 40 mg PO QPM 04/07/22 05/04/23 Losartan [Cozaar] 50 mg ORAL DAILY 04/07/22 05/04/23 hydroCHLOROthiazide [Hydrodiuril] 12.5 mg PO DAILY 04/07/22 05/04/23 traMADol [Ultram] 50 mg PO Q6H PRN 05/04/23 05/04/23 - Allergies Allergies/Adverse Reactions: Allergies Allergy/AdvReac Type Severity Reaction Status Date / Time No Known Drug Allergies Allergy Verified 04/07/22 13:49 Exam - Vital Signs Vital Signs: Vital Signs x48h Temp Pulse Pulse Resp BP BP Pulse Ox 05/04/23 12:24 36.7 C 77 19 122/68 92 05/04/23 12:23 05/04/23 10:53 36.5 C 98 18 115/96 H 93 05/04/23 09:49 18 95 05/04/23 09:31 36.4 C L 76 18 111/59 L 96 05/04/23 06:30 35.9 C L 71 17 127/50 L 97 05/04/23 06:18 35.9 C L 71 17 127/50 L 97 O2 Flow Rate 05/04/23 12:24 05/04/23 12:23 2 05/04/23 10:53 05/04/23 09:49 05/04/23 09:31 2 05/04/23 06:30 05/04/23 06:18 - Physical Exam General Appearance: positive: No acute distress, Alert Eyes Bilateral: positive: PERRL, EOMI ENT: positive: Other ( Mouth opening within normal limits. Occlusion stable and repeatable. No obvious intraoral trauma. There is no tenderness, surprisingly of the right floor the mouth. There is tenderness though when the submandibular salivary gland is palpated on the right. [place]'s duct is not erythematous.) Neck: positive: Other ( Swelling in the right submandibular region extending down to the level of the larynx. The swelling is soft. There is no erythema of the swelling. There is moderate tenderness of the right submandibular area especially where the submandibular salivary gland is located.) Respiratory: positive: No respiratory distress, Breath sounds nml Cardiovascular: positive: Regular rate & rhythm Peripheral Pulses: positive: 1+ Abdomen: positive: Non-tender Extremities: positive: Nml appearance Comments/Other: Tongue protrudes midline. Cranial nerves V2 and V3 within normal limits. There is no drainage from the right sinus Jeremisa's duct. There is no erythema of the right Barr[place]itas's duct. There is no palpable stone in the right floor the mouth. She reported no tenderness during palpation of the right Barr[place]itas's duct. It is tender though when the finger is directed more posteriorly in the Direction of the submandibular salivary gland. Uvula midline, no palatal drape, no lateral pharyngeal swelling. Conclusion and Plan - Lab Results Laboratory Results 05/04/23 07:53: PT 17.4 H, INR 1.6 H, APTT 34.0 H 05/04/23 07:53: Sodium 136, Potassium 3.4 L, Chloride 105, Carbon Dioxide 24, Anion Gap 7.0, BUN 11, Creatinine 0.6, Estimated GFR (MDRD) 96, Glucose 130 H, Calcium 9.3 05/04/23 07:53: WBC 20.3 H, RBC 4.29, Hgb 12.6, Hct 39.0, MCV 90.9, MCH 29.4, MCHC 32.3, RDW 13.2, Plt Count 392, MPV 8.6, Neut # (Auto) 17.6 H, Lymph # (Auto ) 0.9 L, [place] # (Auto) 1.7 H, Eos # (Auto) 0.0, Baso # (Auto) 0.1, Absolute Nucleated RBC 0.00, Nucleated RBC % 0.0, Manual Slide Review Indicated, RBC Morph Micro Appear 1+ ANISOCYTOSIS - Diagnosis Diagnosis: Sialadenitis of the right submandibular salivary gland with cellulitis of the neck - Consultation Note Consultation Note: 77-year-old female with right submandibular salivary gland sialoadenitis with cellulitis of the neck causing mass effect on the airway and deviation and narrowing of the airway. She reports that she is already improved significantly since she arrived in the hospital. She is breathing easier. The swelling in her neck has already decreased and her neck does not feel as stiff to her. She reports that she has not had any drainage in her mouth. The CT scan does not show any distinct stone. It also does not show any distinct abscess. There is a note in the CT scan read that she needs to follow-up with otolaryngology for examination of the right vallecula area where there is a possible mass. This finding most likely represents phlegmon related to the current sial adenitis and cellulitis. - Plan Plan: We anticipate nonoperative management of the swelling. We recommend IV antibiotics for 48 hours followed by Augmentin if she has improved significantly. We recommend staying in house for 48 hours to monitor her airway and then if she is improved significantly allowing her to be discharged. I will follow-up with her in my clinic to continue to monitor for resolution of the acute cellulitis and sialoadenitis. I will also follow-up for recurrence of sialoadenitis. If she continues to have sialadenitis of the right subma ndibular salivary gland and no stone or blockage can be removed from the right Barr[place]itas's duct then we will recommend removal of the right submandibular salivary gland. This is most ideally performed during a time when there is not cellulitis of the neck.
--- NOTE | 2023-05-04 16:07 | PHARMACY PROGRESS NOTE ---
- Best Possible Medication History Admit Date and Time: 05/04/23 1151 Processed by: Pharmacy Medication History completed: Yes Patient Interview: Pt unable to participate Secondary Source(s): Physician records, Pharmacy records, Insurance records As the person ultimately responsible for medication therapy, providers are able to order a medication from an existing home medication list in [facility] via the "Reconcile Routine" prior to Confirmation of that medication by wan support specialist. Such practice is discouraged except when the physician, in their clinical judgment, deems that a medical need exists for a medication without regard to previous use.
[2023-05-04] MEDS: CLINDAMYCIN 900 MG/50 ML 900 MG/50 ML BAG IV SCH (16:16)
[2023-05-04] MEDS: SACCHAROMYCES BOULARDII 250 MG CAPSULE PO SCH (16:17)
[2023-05-04] MEDS: SODIUM CHLORIDE FLUSH 0.9% 10 ML SYRINGE IVP SCH ×2 (16:17→20:59)
[2023-05-04] MEDS: APIXABAN 5 MG TABLET PO SCH (20:58)
[2023-05-04] MEDS: FAMOTIDINE 20 MG/2 ML VIAL IVP SCH (20:58)
--- NOTE | 2023-05-04 21:33 | ED Physician Documentation ---
ED Addendum - Addendum Addendum: 05/04/23 21:[address] scan done which showed inflammation of the salivary sublingual gland with cellulitic changes in anterior soft tissue neck and extending to sublingual area with crowding of the hypopharnyx and glottis area causing narrowing of the paratracheal area. Ill defined low density in hypopharynx area concerning for early abscess about 2.5 cm size. . Pt has some hoarse ness of the voice but is able to talk sentences and no trrouble breathing. No stridor. I consulted Dr. Hassan, [facility] surgery to see if he would be able to consult and provide care for the pt. he is available and asks for Hospitalist to admit and he will consult. I discussed with pt the concern of the space filling nature of the infection and concern for further impairment on breathing and swallowing, and the desire to have her hospitalized with fluids/abx, steroids, pain meds, until there is clear improvement in the edema/infection. She is agreeable. Given another dose of steroids. Had been given CLinda and Rocephin antibiotics. Disposition: patient admitted to Hospitalist service. Diagnosis: 1. sialoadenitis right submandibular gland 2. anterior neck cellulitiis with swelling 05/04/23 21:34
[2023-05-05] MEDS: CLINDAMYCIN 900 MG/50 ML 900 MG/50 ML BAG IV SCH ×3 (00:55→17:01)
[2023-05-05 06:07] LABS: BASOPHILS % (AUTO) 0.2 %; HCT - HEMATOCRIT 36.9 % (37.0-47.0); HGB - HEMOGLOBIN 11.9 g/dL (12.0-16.0); LYMPHOCYTES # (AUTO) 0.9 10^3/uL (1.5-3.5); LYMPHOCYTES % (AUTO) 4.7 %; MEAN CORPUSCULAR HEMOGLOBIN 29.5 pg (27.0-31.0); MEAN CORPUSCULAR HGB CONC 32.2 g/dL (32.0-36.0); MEAN CORPUSCULAR VOLUME 91.6 fL (81.0-99.0); MEAN PLATELET VOLUME 9.1 fL (7.9-10.8); MONOCYTES # (AUTO) 0.6 10^3/uL (0.0-1.0); MONOCYTES % (AUTO) 3.5 %; NEUTROPHILS # (AUTO) 16.5 10^3/uL (1.5-6.6); NEUTROPHILS % (AUTO) 91.2 %; PLT - PLATELET COUNT 359 10^3/uL (130-450); RED BLOOD COUNT 4.03 10^6/uL (4.20-5.40); RED CELL DISTRIBUTION WIDTH 13.2 % (12.0-15.0); WHITE BLOOD COUNT 18.1 x10^3/uL (4.8-10.8)
[2023-05-05 06:21] LABS: CALCIUM 9.5 mg/dL (8.5-10.3); CREATININE 0.6 mg/dL (0.6-1.3); POTASSIUM 3.3 mmol/L (3.5-4.5)
[2023-05-05] MEDS: D5NS W/20 MEQ KCL 1,000 ML IV SCH (08:00)
[2023-05-05] MEDS: APIXABAN 5 MG TABLET PO SCH ×2 (08:44→20:28)
[2023-05-05] MEDS: SACCHAROMYCES BOULARDII 250 MG CAPSULE PO SCH ×2 (08:44→17:02)
[2023-05-05] MEDS: SODIUM CHLORIDE FLUSH 0.9% 10 ML SYRINGE IVP SCH ×2 (08:49→17:02)
[2023-05-05] MEDS: FAMOTIDINE 20 MG/2 ML VIAL IVP SCH ×2 (08:52→20:28)
[2023-05-05] MEDS ORDERED: DEXAMETHASONE 4 MG/ML VIAL IVP SCH (09:00)
[2023-05-05] MEDS ORDERED: LOSARTAN 50 MG TABLET PO SCH (09:00)
--- NOTE | 2023-05-05 11:26 | PROVIDER PROGRESS NOTE ---
Assessment/Plan - Problem List (1) Acute sialoadenitis Assessment/Plan: As per CT imaging and clinical presentation. Appreciate consult from Dr Hassan, Oral-maxillofacial Surgeon. Her pain and swelling have decreased substantially on iv steroids and iv antibx. WBC was 20>> 18 today (all labs were reviewed0 Plan: Will cont empiric iv antibx using Clinda. She was not recently hospitalized or has immunocompromise, to consider MRSA and needing Vanco. At discharge, will transition to oral Augmentin. Await any (+) cx results to tailor antibx Cont probiotic Cont iv pain meds prn (2) Narrow pharyngeal airway Conclusion/Plan: As per CT imaging. She received Decadron iv x2 in the ER, and I have continued her on Decadron 6mg iv daily. I ordered Full liquid diet today advanced to a soft diet, which she tolerated. I ordered nursing to monitor her airway and call provider if there is any stridor or breathlessness, and she has had none. Plan: Advance diet as tolerated Continue with Decadron 6 mg IV daily and she may not need medrol dose ryan at [facility], since the swelling has resolved (3) Cellulitis of neck Conclusion/Plan: As per imaging and clinical impression with elevated WBC of 20 at admission, and mass on neck Plan: Will continue with empiric IV antibiotics using clinda Other rec as per Dr Hassan>> to complete a 1 week total course of antibx, also to have F/U by [facility] surgeon in a week (4) HTN (hypertension) Conclusion/Plan: Her reconciled med list states that she is on amlodipine 10 mg daily and HCTZ Plan: I restarted Amlodipine but will not order HCTZ while she needs IV fluids, since po intake lower (5) Hx of deep venous thrombosis Conclusion/Plan: The patient takes Xarelto at home Plan: We have substituted with Eliquis 5 mg twice daily while here, since Xarelto not on hospital formulary. - Current Meds Current Meds: Current Medications Generic Name Dose Route Start Last Admin Trade Name Freq PRN Reason Stop Dose Admin Apixaban 5 mg 05/04/23 21:00 05/05/23 08:44 Apixaban 5 Mg Tablet PO 5 mg BID SIMA Administration Dexamethasone 6 mg 05/05/23 09:00 05/05/23 08:45 Dexamethasone 4 Mg/Ml Vial IVP 6 mg DAILY SIAM Administration Famotidine 20 mg 05/04/23 21:00 05/05/23 08:52 Famotidine 20 Mg/2 Ml Vial IVP 20 mg BID SIMA Administration Potassium Chloride/Dextrose/Sod Cl 1,000 mls @ 60 mls/hr 05/04/23 12:00 05/05/23 08:00 D5ns W/20 Meq Kcl IV 60 mls/hr .[id number] SIMA Administration Clindamycin/Sodium Chloride 900 mg in 50 mls @ 50 mls/hr 05/04/23 17:00 05/05/23 10:26 Cleocin 900 Mg/50 Ml IV Infused Q8H SIMA Infusion Losartan Potassium 50 mg 05/05/23 09:00 05/05/23 08:44 Losartan 50 Mg Tablet PO 50 mg DAILY SIMA Administration Saccharomyces Boulardii 500 mg 05/04/23 17:00 05/05/23 08:44 Saccharomyces Boulardii 250 Mg Capsule PO 500 mg BIDWM SIMA Administration Sodium Chloride 10 ml 05/04/23 17:00 05/05/23 08:49 Sodium Chloride Flush 0.9% 10 Ml Syringe IVP Not Given 0100,0900,1700 SIMA - Lab Result Fish Bone Diagrams: 05/05/23 05:10 05/05/23 05:10 - Additional Planning My Orders: My Active Orders 05/04/23 11:51 Activity Orders [RC] Q2HR IO [RC] IOSHIFT Initiate Bowel Care Protocol [RC] .protocol Initiate Line Care Protocol [RC] QSHIFT Initiate Personal Care Protoco [RC] .protocol Oxygen Therapy [RC] .PRN Vital Signs [RC] Q4HR HYDROmorphone 0.5MG SYRINGE [Dilaudid 0.5MG Syringe] 0.5 mg IVP Q2H PRN Sodium Chloride Flush 0.9% [Normal Saline Flush 0.9%] 10 ml IVP PRN PRN Code Status [OTHERS] Routine Condition of Patient [OTHERS] Routine DVT Prophylaxis [OTHERS] Routine 05/04/23 11:53 Daily Weight [RC] 0600 IV Insert [RC] .ONCE 05/04/23 11:54 General Surgery Consult [CONS] Routine 05/04/23 11:55 Initiate Line Care Protocol [RC] QSHIFT Acetaminophen [Tylenol] 160 mg PO Q4H PRN 05/04/23 11:56 traMADol [Ultram] 50 mg PO Q6H PRN 05/04/23 11:57 Oral Care - Nursing [RC] BID 05/04/23 11:59 Miscellaenous Nursing Order [RC] QSHIFT 05/04/23 12:00 D5ns W/20 Meq KCl 1,000 ml IV 60 mls/hr 05/04/23 17:00 Clindamycin 900 mg/50 ml [Cleocin 900 mg/50 ml] 900 mg in 50 ml IV Q8H Saccharomyces Boulardii [Florastor] 500 mg PO BIDWM Sodium Chloride Flush 0.9% [Normal Saline Flush 0.9%] 10 ml IVP 0100,0900,1700 05/04/23 21:00 Apixaban [Eliquis] 5 mg PO BID Famotidine [Pepcid] 20 mg IVP BID 05/05/23 Breakfast DIET [Soft (Low Fiber) Diet] [DIET] 05/05/23 09:00 Losartan [Cozaar] 50 mg PO DAILY dexAMETHasone [Decadron] 6 mg IVP DAILY Subjective - Subjective Patient Reports: Feeling Better (No trouble with a soft diet), Resting Comfortably Objective Vital Signs: Vital Signs - 24 hr 05/04/23 05/04/23 05/04/23 12:23 12:24 16:22 Temperature 36.7 C 36.7 C Heart Rate [ 77 76 Brachial] Respiratory 19 19 Rate Blood Pressure 122/68 127/84 H [Right Brachial artery] O2 Saturation 92 94 If not protocol 2 : Oxygen Flow, liters/minute 05/04/23 05/05/23 05/05/23 20:44 01:00 05:00 Temperature 37.1 C 36.7 C 36.8 C Heart Rate [ 74 79 87 Brachial] Respiratory 18 16 16 Rate Blood Pressure 139/88 H 113/56 L 123/60 [Right Brachial artery] O2 Saturation 96 95 96 If not protocol : Oxygen Flow, liters/minute 05/05/23 07:28 Temperature 36.8 C Heart Rate [ 68 Brachial] Respiratory 16 Rate Blood Pressure 123/71 [Right Brachial artery] O2 Saturation 96 If not protocol : Oxygen Flow, liters/minute Oxygen O2 Source Room air I&O (Last 24 Hrs): Intake and Output Totals x24h 05/03/23 05/04/23 05/05/23 23:59 23:59 23:59 Intake Total 2569.667 1197 Balance 2569.667 1197 General: Alert, Oriented x3, No acute distress HEENT: EOMI, Mucous membr. moist/pink Neck: Supple, Other (No tenderness, swelling or assymetry) Neuro: Alert, Non Focal Cardiovascular: Regular rate, No murmurs Respiratory: No respiratory distress, Breath sounds nml Abdomen: Soft Extremities: No clubbing, No edema, No tenderness/swelling - Results Results: Laboratory Results WBC 18.1 x10^3/uL (4.8-10.8) H 05/05/23 05:10 RBC 4.03 10^6/uL (4.20-5.40) L 05/05/23 05:10 Hgb 11.9 g/dL (12.0-16.0) L 05/05/23 05:10 Hct 36.9 % (37.0-47.0) L 05/05/23 05:10 MCV 91.6 fL (81.0-99.0) 05/05/23 05:10 MCH 29.5 pg (27.0-31.0) 05/05/23 05:10 MCHC 32.2 g/dL (32.0-36.0) 05/05/23 05:10 RDW 13.2 % (12.0-15.0) 05/05/23 05:10 Plt Count 359 10^3/uL (130-450) 05/05/23 05:10 MPV 9.1 fL (7.9-10.8) 05/05/23 05:10 Neut # (Auto) 16.5 10^3/uL (1.5-6.6) H 05/05/23 05:10 Lymph # (Auto) 0.9 10^3/uL (1.5-3.5) L 05/05/23 05:10 [place] # (Auto) 0.6 10^3/uL (0.0-1.0) 05/05/23 05:10 Eos # (Auto) 0.0 10^3/uL (0.0-0.7) 05/05/23 05:10 Baso # (Auto) 0.0 10^3/uL (0.0-0.1) 05/05/23 05:10 Absolute Nucleated RBC 0.00 x10^3/uL 05/05/23 05:10 Nucleated RBC % 0.0 /100WBC 05/05/23 05:10 Manual Slide Review Indicated 05/04/23 07:53 RBC Morph Micro Appear 1+ ANISOCYTOSIS (NORMAL) 05/04/23 07:53 PT 17.4 secs (9.9-12.6) H 05/04/23 07:53 INR 1.6 (0.8-1.2) H 05/04/23 07:53 APTT 34.0 secs (24.9-33.3) H 05/04/23 07:53 Sodium 137 mmol/L (135-145) 05/05/23 05:10 Potassium 3.3 mmol/L (3.5-4.5) L 05/05/23 05:10 Chloride 106 mmol/L (101-111) 05/05/23 05:10 Carbon Dioxide 24 mmol/L (21-32) 05/05/23 05:10 Anion Gap 7.0 (6-13) 05/05/23 05:10 BUN 11 mg/dL (6-20) 05/05/23 05:10 Creatinine 0.6 mg/dL (0.6-1.3) 05/05/23 05:10 Estimated GFR (MDRD) 96 (>89) 05/05/23 05:10 Glucose 149 mg/dL (74-104) H 05/05/23 05:10 Calcium 9.5 mg/dL (8.5-10.3) 05/05/23 05:10
--- NOTE | 2023-05-05 19:24 | Discharge Plan ---
Discharge Plan Problem Reviewed?: Yes Disposition: Home, Self Care Condition: Stable Prescriptions: Amox/Clav 875/125 [Augmentin 875/125 Tab] 1 tablet PO BID 5 Days #10 tablet Diet: Soft Activity Restrictions: Activity as Tolerated Shower Restrictions: No Driving Restrictions: No Instruction Topics: ED Submandibular Gland Infec Health Concerns: You were hospitalized to treat the pain and swelling of an infected salivary gland. You received 2 days of IV antibiotics, and needed narcotics for pain control. You are being discharged home with a prescription to take oral antibiotics for 5 more days. The prescription was electronically sent to your [facility] in [place]. While you are on antibiotics, eat yogurt daily or take a probiotic, to avoid getting diarrhea. Because your swelling has improved substantially, you are not being prescribed any more steroids to take. Please eat a soft diet and you can adjust that to eating solid food, as tolerated. Please go to today's doctor's appointment that you have scheduled, and determine which oral-maxillofacial surgeon is in the [facility] network that you should see for follow-up of this gland infection. Please resume all your other pre-hospital medications and management. If you have any new or worsening symptoms, call your PCP or the new oral-maxillofacial provider for advice, or come to the ER. Plan of Treatment: As above. Care Goals: Improvement in symptoms and stabilization are the goals. Assessment: Patient understands and is agreeable with the plan. No Smoking: If you smoke, Please STOP! Call for help. Follow-up with: RAMIRO BURRELL MD [Primary Care Provider] -
--- NOTE | 2023-05-05 19:30 | DISCHARGE SUMMARY ---
Discharge Summary Admit Date: 05/04/23 Discharge Date: 05/06/23 Discharging Provider: Dr Crissy Garcia Primary Care Provider: Dr Olga Lidia Watkins Code Status: Attempt Resuscitation Condition at Discharge: Stable Discharge Disposition: 01 Home, Self Care - HPI History of Present Illness: This is a 77-year-old female. She has a history of hypertension and DVT and takes Xarelto. She presents to the ER early this morning complaining of several days of swelling in the right submandibular region and then an area became exquisitely tender. A mass is palpable, as documented by the ER provider. She notices that her voice is slightly abnormal and hoarse but she denies shortness of breath. She does say that swallowing feels "funny" but no stridor was appr eciated in the ER. There is no fever, cough, runny nose, dental pain or trauma. Her workup showed a white count of [address] imaging shows sialoadenitis and cellulitis of the neck and narrowing of the airway. The ER provider reached out to oral maxillofacial surgeon Dr. Hassan who advised admission and IV antibiotics and he will see her in consult. I discussed her CODE BLUE wishes and she wants to be a Full Code. - HOSPITAL COURSE Hospital Course: (1) Acute sialoadenitis As per CT imaging and clinical presentation. She was seen in consult by Dr Hassan, Oral-maxillofacial Surgeon, who recommended iv Clindamycin for 48 hours, then to transition to oral Augmentin BID, which was prescribed at discharge, to complete 1 week total course of treatment. She needed several doses of narcotics initially only, then her pain decreased substantially. Dr Hassan advised an outpatient follow-up visit with Oral-maxillofacial Surgery in a week, and if she has a recurrence she will need the gland removed surgically. (2) Narrow pharyngeal airway As per CT imaging. She received Decadron 10 mg iv x2 in the ER, and was continued on Decadron 6 mg iv daily. She was on a Full liquid diet to start and advanced to a soft diet, which she tolerated. I ordered nursing to monitor her airway and call provider if there was any stridor or breathlessness, in case she needed intubation. Her swelling subsided quickly. She was not prescribed any further steroids at discharge. (3) Cellulitis of neck As per imaging and elevated WBC of 12 at admission, and findings of swelling of neck. She improved unexpectedly quickly with iv antibiotics and iv Decadron. WBC dropped to 18 then 11. She was discharged to finish a course of antibiotics. (4) HTN (hypertension) We continued her on Amlodipine 10 mg daily, but did not give HCTZ, since she received iv fluids (5) Hx of deep venous thrombosis The patient takes Xarelto at home. We substituted with Eliquis 5 mg BID dosing while she was here, since Xarelto is not on hospital formulary. - ALLERGIES Allergies/Adverse Reactions: Allergies Allergy/AdvReac Type Severity Reaction Status Date / Time No Known Drug Allergies Allergy Verified 04/07/22 13:49 - MEDICATIONS Home Medications: Ambulatory Orders Medication Instructions Recorded Confirmed Rivaroxaban [Xarelto] 20 mg PO DAILY #14 tablet 07/26/18 05/04/23 Amlodipine Besylate [Norvasc] 10 mg PO DAILY 04/07/22 05/04/23 Atorvastatin [Lipitor] 40 mg PO QPM 04/07/22 05/04/23 Losartan [Cozaar] 50 mg ORAL DAILY 04/07/22 05/04/23 hydroCHLOROthiazide [Hydrodiuril] 12.5 mg PO DAILY 04/07/22 05/04/23 Potassium Chloride 20 meq PO DAILY 05/04/23 05/04/23 traMADol [Ultram] 50 mg PO Q6H PRN 05/04/23 05/04/23 Amox/Clav 875/125 [Augmentin 1 tablet PO BID 5 Days #10 tablet 05/05/23 875/125 Tab] - PHYSICAL EXAM AT DISCHARGE General Appearance: positive: No acute distress, Alert Eyes Bilateral: positive: Normal inspection, EOMI ENT: positive: ENT inspection nml, Pharynx nml, No signs of dehydration Neck: positive: Nml inspection, No JVD, Other (No assymetry, swelling or tenderness) Respiratory: positive: No respiratory distress, Breath sounds nml Cardiovascular: positive: Regular rate & rhythm, No murmur Abdomen: positive: Non-tender, No distention Skin: positive: Warm, Dry Extremities: positive: Non-tender, No pedal edema Neurologic/Psychiatric: positive: Oriented x3, CN's nml (2-12), Motor nml - LABS Result Diagrams: 05/05/23 05:10 05/05/23 05:10 - DIAGNOSTIC IMAGING Diagnostic Imaging Results: Final report reviewed - FOLLOW UP Follow Up: See PCP and oral-maxillofacial surgeon after discharge. - TIME SPENT Time Spent in Discharge (Minutes): 30
[2023-05-05] MEDS: POTASSIUM CHLOR 10 MEQ/100 ML 10 MEQ/100 ML BAG IV SCH ×3 (20:11→20:28)
[2023-05-06] MEDS: SODIUM CHLORIDE FLUSH 0.9% 10 ML SYRINGE IVP SCH (00:10)
[2023-05-06] MEDS: CLINDAMYCIN 900 MG/50 ML 900 MG/50 ML BAG IV SCH (00:56)
[2023-05-06 01:05] VITALS: O2SAT 96
[2023-05-06] MEDS: D5NS W/20 MEQ KCL 1,000 ML IV SCH (02:01)
[2023-05-06 05:35] VITALS: BP 133/72
== END 2023-05-06 07:33 | disposition home or self-care (01) | DRG 155 ==
LOC: EDUNIT# → ED 06:05 → MS3 11:51
PROVIDERS: ADMIT Internal Medicine; ATTEND Internal Medicine
DX: K11.20 Sialoadenitis, unspecified (principal); K11.21 Acute sialoadenitis; L03.221 Cellulitis of neck; I10 Essential (primary) hypertension; Z86.718 Personal history of other venous thrombosis and embolism; Z79.01 Long term (current) use of anticoagulants; Z87.891 Personal history of nicotine dependence; R22.1 Localized swelling, mass and lump, neck; J98.8 Other specified respiratory disorders; R49.0 Dysphonia; E78.00 Pure hypercholesterolemia, unspecified
CPT/HCPCS: 36415; 70492; 80048; 85025; 85610; 85730; 96365; 96375; 99284; 99285; A9270; J1170; Q9967

== ENCOUNTER 2023-12-19 07:01 | Emergency (ER) | payer MEDICARE ==
--- NOTE | 2023-12-19 07:44 | ED Physician Documentation ---
PD HPI LOWER EXT INJURY - Stated complaint Stated Complaint: LFT LEG PX - Chief complaint Chief Complaint: Trauma Ext - History obtained from History obtained from: Patient - History of Present Illness PD HPI LOW EXT INJURY LOCATION: Left, Ankle, Calf Type of injury: Twist Where injury occurred: Home Timing - onset: How many days ago (3) Timing - duration: Days (2 days of the calf pain and swelling, increased overnight.) Timing - details: Gradual onset, Still present Associated symptoms: Swelling. No: Weakness, Numbness Review of Systems Cardiac: denies: Chest pain / pressure Respiratory: denies: Dyspnea Skin: denies: Rash PD PAST MEDICAL HISTORY - Past Medical History Past Medical History: Yes Cardiovascular: Hypertension, High cholesterol, Deep vein thrombosis Respiratory: None Neuro: None Endocrine/Autoimmune: None GI: GERD REGULATOR TESTER: Breast cancer : None HEENT: None Psych: None Musculoskeletal: None Derm: None - Past Surgical History Past Surgical History: Yes Ortho: Hip replacement /REGULATOR TESTER: Other - Present Medications Home Medications: Ambulatory Orders Medication Instructions Recorded Confirmed Rivaroxaban [Xarelto] 20 mg PO DAILY #14 tablet 07/26/18 12/19/23 Amlodipine Besylate [Norvasc] 10 mg PO DAILY 04/07/22 12/19/23 Atorvastatin [Lipitor] 40 mg PO QPM 04/07/22 12/19/23 Losartan [Cozaar] 50 mg ORAL DAILY 04/07/22 12/19/23 hydroCHLOROthiazide [Hydrodiuril] 12.5 mg PO DAILY 04/07/22 12/19/23 HYDROcod/ACETAM 5/325 [[place] 5/325] 1 ea PO Q6H PRN #12 tablet 12/19/23 - Allergies Allergies/Adverse Reactions: Allergies Allergy/AdvReac Type Severity Reaction Status Date / Time No Known Drug Allergies Allergy Verified 12/19/23 07:33 - Social History Does the pt smoke?: No Smoking Status: Former smoker Does the pt drink ETOH?: Yes Does the pt have substance abuse?: No - Immunizations Immunizations are current?: Yes - POLST Patient has POLST: No POLST Status: Full Code PD ED PE NORMAL - Vitals Vital signs reviewed: Yes - General General: Alert and oriented X 3, No acute distress, Well developed/nourished - Derm Derm: Normal color, Warm and dry - Extremities Extremities: No edema, Other (there is some swelling/increased girth of calf area. No edema in foot. Ankle not tender. Calf tender posterlaterally. Not tender popliteal. ) - Neuro Neuro: No motor deficit, No sensory deficit Results - Vitals Vitals: Oxygen O2 Source Room air - Rads (name of study) duplex leg Relevant Findings:: Prelim report reviewed (no DVT), EMP independent interpretation of test PD Medical Decision Making - ED course Complexity details: considered differential (The patient had a mild twisting injury of the ankle 3 days ago without much discomfort after. She has noticed pain in the mid calf however in the last day with some swelling in that area generally. She is on blood thinner for prior DVT years ago. She had been sitting in the car for hrs 2 days ago) ED course: The patient is concern for a blood clot in the calf. She had had 1 perhaps 10 years ago and has been on a blood thinner. She denies missing doses of the Xarelto. She had twisted her ankle mildly several days ago but no pain there. She had been sitting in the car for prolonged period between waiting on the [employer] line[place] then another 2-hour wait in the [place] line back. This actually gave a fairly extended period of time sit sitting. The patient does have some increased girth of the mid calf compared to the other side. There is tenderness in the posterior lateral aspect. No tenderness in the popliteal area nor the thigh. The ankle itself is not tender and there is no effusion or swelling. Normal sensation in the toes. The patient has some symptoms at peak concerning for DVT. Given the twisting of the ankle and leg the day prior to the onset of this, it could also be just a muscle strain with some local edema. No bruising is seen. It would be prudent to do an ultrasound to evaluate. Departure - Departure Disposition: 01 Home, Self Care Clinical Impression: Hx of deep venous thrombosis, Calf pain, Muscle strain, lower leg Condition: Stable Record reviewed to determine appropriate education?: Yes Instructions: ED Strain Muscle Ext Follow-Up: RAMIRO BURRELL MD [Primary Care Provider] - Prescriptions: HYDROcod/ACETAM 5/325 [[place] 5/325] 1 ea PO Q6H PRN #12 tablet PRN Reason: Pain Comments: Your ultrasound is negative for blood clots. This is a good thing and I would have you continue with your normal Xarelto. Alternative explanations can be a strain or irritation of the muscle leading to some swelling in the area and there can even be some impairment of the return blood flow without clots per se. Activity as tolerated. Tylenol 500 to 650 mg 4 times daily as needed for pains. Add hydrocodone pain medicine if needed for worse pain in the short-term. I would anticipate improvement over the next several days or so with the decreased activity and elevating the leg often. The ultrasound is quite accurate for looking for blood clots. It is considered 98 to 99% accurate. That said if you have increasing pain swelling etc. in the calf or leg the ultrasound can get repeated add a 5 to 7-day interval to see if there is any development. Alternatively the process that is happening such as a muscle strain can subsequently lead to a clot or such. Point being if you are not improving readily over the next several days to week then follow-up with your primary care or urgent care or back with us to reevaluate. Forms: PCP List Discharge Date/Time: 12/19/23 09:39
[2023-12-19 07:48] VITALS: O2SAT 97
[2023-12-19] MEDS: HYDROcod/ACETAM 5/325 MG TABLET PO STA (08:30)
--- NOTE | 2023-12-19 09:32 | Ultrasound Report ---
PROCEDURE: Duplex Ext Veins Left INDICATIONS: pain/swelling LLE TECHNIQUE: Real-time imaging, as well as color and pulse Doppler interrogation, were performed of the lower extr emity deep veins from the inguinal ligament to the popliteal fossa. Attempted visualization of the ca lf veins was performed. COMPARISON: July 26, 2018 FINDINGS: The deep veins are normally compressible, and free of intraluminal thrombus. Color and pu lse Doppler demonstrate normal phasic intraluminal flow. There is normal augmentation response to di stal compression maneuver. IMPRESSION: No deep venous thrombosis of the visualized lower extremity. Reviewed by: Gisele Quiroz MD on 12/19/2023 8:30 AM NASRE[facility] Approved by: Gisele Quiroz MD on 12/19/2023 8:30 AM NASRE[facility] Station ID: [id number]
[2023-12-19 09:47] VITALS: BP 134/67
== END 2023-12-19 09:39 | disposition home or self-care (01) ==
LOC: ED 07:01
DX: S86.912A Strain of unspecified muscle(s) and tendon(s) at lower leg level, left leg, initial encounter (principal); X50.1XXA Overexertion from prolonged static or awkward postures, initial encounter; Z86.718 Personal history of other venous thrombosis and embolism; Z79.01 Long term (current) use of anticoagulants; Z87.891 Personal history of nicotine dependence; I10 Essential (primary) hypertension; E78.00 Pure hypercholesterolemia, unspecified
CPT/HCPCS: 93971; 99284; A9270